=== PATIENT | male | born 1960 | race Caucasian/White ===

== ENCOUNTER 2016-05-15 06:45 | Outpatient (CLI) | payer BC ==
[~2016-05-15] VITALS: Ht 177.8 cm; Wt 111.9 kg
--- NOTE | ~2016-05-15 | EKG ---
[place] [address] [facility] [place] [address] ELECTROCARDIOGRAM REPORT Name: JOSHUA MAYNARD Room #: [facility] [id number] Admission: 05/15/16 Attend Phys: Chuck Gimenez MD Discharge: 05/16/16 Date of : 64 Report #: [id number] THIS REPORT FOR: //name// 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 MARTIN : 1960 Requested By: Hira Orozco Order Number: [id number] MD: Masoud Edwards Measurements Intervals Sacul Rate: 90 P: 254 KY: 218 QRS: 47 QRSD: 174 T: 232 QT: 485 QTc: 594 Interpretive Statements Sinus rhythm Prolonged KY interval Left atrial enlargement Left bundle branch block No previous ECG available for comparison Electronically Signed On 05-17-2016 14:11:35 DEVELOPMENT EXPERT by Masoud Edwards [email or web address] <ELECTRONICALLY SIGNED> By: Masoud Edwards MD, [facility] 05/17/16 1411 54 54 Masoud Edwards MD, [facility] /EPI
--- NOTE | ~2016-05-15 | P ---
[facility] [place] [address] [place] [address] PROCEDURE REPORT Name: JOSHUA MAYNARD Room #: REG [facility] Eliel#: [id number] Admission: 05/15/16 Attend Phys: Chuck Gimenez MD Discharge: Date of : 64 Report #: [id number] THIS REPORT FOR: //name// CC: Dany Barker DATE OF SERVICE: 05/15/2016 PREOPERATIVE DIAGNOSIS: Typical atrial flutter. POSTOPERATIVE DIAGNOSIS: Typical atrial flutter. HISTORY: The patient is a 56-year-old male status post aortic valve replacement with mechanical aortic valve who has had recurrent atrial flutter despite cardioversion. He is here for an aflutter ablation. ANESTHESIA: The patient underwent MAC anesthesia with no anesthesia related complications. PROCEDURE: The patient underwent informed consent. We discussed the details of the procedure including the risks, which include but not limited to bleeding, vascular damage, cardiac perforation, damage to the winneb[place] conduction system requiring permanent pacemaker as well as stroke or MS. He understood these risks and is willing to proceed. As such, he is brought to the EP laboratory in a fasting and sedated state and prepped and draped in a sterile fashion. I injected 7 mL of lidocaine to the right groin region and obtained access to the right femoral vein x 3 and sheaths were positioned using the modified Seldinger technique. In the right femoral vein, I placed a 6-Malagasy and two 7-Malagasy short sheaths. Next, under fluoroscopic guidance, I placed a decapolar catheter into the coronary sinus. Of note, this was a very large coronary sinus and the decapolar catheter kept slipping out throughout the case, but eventually remained in position without incident. I then placed the Halo catheter into the right atrium as well around the tricuspid annulus. At baseline, the patient was in atrial flutter with a ventricular cycle length of 765 milliseconds, QRS duration of 160 milliseconds with a left bundle branch block configuration which occurred at the time of his aortic valve replacement. His QT interval was 450 and his atrial cycle length was 245 milliseconds with the proximal to distal activation sequence along the coronary sinus and a counterclockwise activation along the Halo catheter. I performed pacing from Halo 1-2 and I was able to entrain the atrial flutter and the PPI minus tachycardia cycle length was 10 milliseconds consistent with typical atrial flutter. Next, I exchanged one of the short sheaths for a ramp sheath and an 8 mm Biosense Manuel ablation catheter. I created a detailed 3D geometry of the right atrium with specific emphasis of the tricuspid annulus. Next, I performed ablation at 70 barrera and 60 degrees and performed a continuous drag lesion along the tricuspid [facility] [address] [place] [address] PROCEDURE REPORT Name: JOSHUA MAYNARD Room #: REG BRIGID Julian#: [id number] Admission: 05/15/16 Attend Phys: Chuck Gimenez MD Discharge: Date of : 64 Report #: [id number] isthmus at 6 o'clock along the annulus. As I was ablating, there was prolongation of the atrial flutter cycle length and about two thirds and after I reached about the middle of the isthmus, there was conversion to sinus rhythm. I continued to ablate in until I fell down to the inferior vena cava. Immediately post-ablation, I performed pacing from CS 9-10 and the transisthmus conduction time was 160 milliseconds with an activation sequence consistent with medial to lateral block. I then performed differential pacing from Halos 1-2 and 3-4 which was also consistent with a lateral to medial block with a transisthmus conduction time of 170 milliseconds. During the awaiting period, I went along my prior ablation line and performed additional ablation in an area where there was a gap remaining and there was some small sharp electrogram still noted. However, throughout the rest of my line, there was basically no significant signals noted. Next, I performed a basic EP study and AV block was noted at 490 milliseconds. An AV ilaan ERP was noted at 360 milliseconds at a [address] cycle length. Post-ablation, the patient was in sinus rhythm with a sinus cycle length of 840 milliseconds, SD interval 250 milliseconds, QRS duration of 160 milliseconds with a left bundle branch block configuration, and QT interval 455 milliseconds. We waited for a period of 30 minutes and there was no recurrence of conduction along the isthmus. As such, all catheters and sheaths were pulled. Hemostasis was performed for longer than usual given the INR of 3.0 and the patient awoke neurologically intact and hemodynamically intact with 10 mL of blood loss. CONCLUSIONS: 1. Successful ablation of typical atrial flutter with evidence of bidirectional block post-ablation. 2. Normal SA ilana function. 3. Normal AV ilana function. 4. Persistence of a left bundle branch block. 5. No other inducible arrhythmias noted. <ELECTRONICALLY SIGNED> By: Chuck Gimenez MD 05/15/16 1416 1140 1402 Chuck Gimenez MD /nt
--- NOTE | ~2016-05-15 | D ---
[facility] [address] [place] [address] DISCHARGE SUMMARY Name: JOSHUA MAYNARD Room #: DEP Steven Julian#: [id number] Admission: 05/15/16 Attend Phys: Chuck Gimenez MD Discharge: 05/16/16 Date of : 64 Report #: [id number] THIS REPORT FOR: //name// CC: Dany Barker MD DICTATED BY: Ashlie DWYER HISTORY OF PRESENT ILLNESS: Very pleasant 56-year-old gentleman who was admitted for an elective atrial flutter ablation. Please see admission history and physical for full details. He proceeded to the electrophysiology lab with Dr. Chuck Gimenez and underwent a successful ablation of typical atrial flutter with evidence of bidirectional block post-ablation. He was monitored overnight on the telemetry floor. He is now maintained sinus rhythm with continued left bundle branch block. He is up ambulating in the halls. He is without any specific complaints, tolerating p.o. intake well. He has been afebrile with blood pressures 110s-130s systolic range. LABORATORY DATA: On admission, sodium 142, potassium 3.8, BUN 18, creatinine 1.0. Hemoglobin 15.1 with a white count of 7.5. INR on admission 3.0. DISCHARGE MEDICATIONS: The patient will resume his home medications of amiodarone 200 mg daily, aspirin 81 mg daily, Nexium 40 mg daily, Lasix 20 mg daily, lisinopril 2.5 mg daily, Toprol 25 mg twice daily, potassium 20 mEq daily, Crestor 20 mg daily, warfarin 5 mg daily. DISCHARGE DIAGNOSES: 1. Typical atrial flutter status post ablation. 2. Left bundle branch block. 3. Prosthetic St. Norm 25 mm aortic valve replacement, February 2016. 4. Dyslipidemia. 5. Hypertension. DISCHARGE INSTRUCTIONS: As mentioned, he will resume his home medications as tolerated, notify the office with any questions or concerns. Atrial dysrhythmias have been reviewed with him. He will have an INR in the office in 1 week. He will follow up with Dr. Chuck Gimenez in 1 month. He will follow up with his other providers as directed. He will resume his usual diet. Activity as tolerated and notify the office with questions or concerns. Dr. Hira Orozco was able to meet with the patient today prior to his discharge and has agreed with the above. [address] [address] DISCHARGE SUMMARY Name: JOSHUA MAYNARD Room #: DEP BRIGID Julian#: [id number] Admission: 05/15/16 Attend Phys: Chuck Gimenez MD Discharge: 05/16/16 Date of : 64 Report #: [id number] Thank you for allowing us to participate in the care of this pleasant gentleman. <ELECTRONICALLY SIGNED> By: Hira Orozco MD, FAC 05/20/16 0936 0744 1852 Hira Orozco MD, [facility] /nt
[~2016-05-15 06:45] MED LIST: ASPIR 8181 MG PO; CRESTOR10 MG PO; LISINOPRIL-HCT1 EAC2 PO; NEXIUM40 MG PO; UNICOMPLEX M TA1 TA1 PO
[2016-05-15 07:31] VITALS: BP 131/81
[2016-05-15] MEDS ORDERED: LISINOPRIL2.5 M1 PO (07:32)
[2016-05-15] MEDS ORDERED: PACERONE 200 M200 M1 PO (07:41)
[2016-05-15] MEDS ORDERED: COUMADIN 5 MG TA5 M1 PO (07:41)
[2016-05-15] MEDS ORDERED: LOPRESSOR25 PO (07:42)
[2016-05-15] MEDS ORDERED: LASIX 20 MG TAB20 MG PO (07:42)
[2016-05-15] MEDS ORDERED: K-DUR 20 MEQ T20 MEQ PO (07:43)
[2016-05-15 07:53] LABS: ABSOLUTE NEUTROPHILS 4.8 thou/uL (1.4-8.2); BASOPHILS 1.1 % (0.0-2.0); EOSINOPHILS 2.4 % (0.0-3.0); HEMATOCRIT 45.9 % (42.0-52.0); HEMOGLOBIN 15.1 gm/dL (14.0-18.0); LYMPHOCYTES 21.7 % (24.0-44.0); MCH 26.5 pg (26.0-34.0); MCHC 32.9 % (28.0-37.0); MCV 80.4 fL (80.0-100.0); MONOCYTES 10.5 % (1.0-8.0); PLATELET COUNT 339 thou/uL (150-400); POLYS 64.3 % (36.0-66.0); WBC 7.5 thou/uL (4.0-11.0)
[2016-05-15 07:55] LABS: MANUAL DIFF NO
[2016-05-15 08:06] LABS: APTT 38.5 Seconds (24.5-32.8); PROTIME 31.5 Seconds (9.3-11.4)
[2016-05-15 08:11] LABS: POTASSIUM 3.8 mmol/L (3.5-5.1)
[2016-05-15 08:15] LABS: ALBUMIN 3.5 g/dL (3.4-5.0); TOTAL BILIRUBIN 0.8 mg/dL (<0.1-1.0); TOTAL PROTEIN 7.9 g/dL (6.4-8.2)
[2016-05-15 13:15] VITALS: BP 114/75
[2016-05-15 15:35] VITALS: BP 121/82
[2016-05-15 20:10] VITALS: BP 121/70
[2016-05-15 21:06] VITALS: BP 113/65
[2016-05-16 00:35] VITALS: BP 135/74
[2016-05-16 04:43] VITALS: BP 109/62
[2016-05-16 08:10] VITALS: BP 136/83
[2016-05-16 11:55] VITALS: BP 136/83
[2016-05-16] MEDS ORDERED: PACERONE 200 M200 M1 PO (12:17)
== END 2016-05-16 12:59 | disposition home or self-care (01) ==
LOC: CATH 06:45 → 2N 16:31 → CATH 05-16 12:59
PROVIDERS: Internal Medicine Cardiovascular Disease
DX: I48.3 Typical atrial flutter (principal); Z95.2 Presence of prosthetic heart valve; E78.5 Hyperlipidemia, unspecified; I11.9 Hypertensive heart disease without heart failure; I73.9 Peripheral vascular disease, unspecified
CPT/HCPCS: 10081; 62110; 62900; 70005

== ENCOUNTER → 2018-05-30 | Outpatient (CLI) | payer BC ==
[~2018-05-30] MED LIST changes: +COUMADIN 5 MG TA5 M1 PO; +K-DUR 20 MEQ T20 MEQ PO; +LASIX 20 MG TAB20 MG PO; +LISINOPRIL2.5 M1 PO; +LOPRESSOR25 PO; +PACERONE 200 M200 M1 PO
--- NOTE | ~2018-05-30 | 24HR ---
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
== END ==
LOC: CV 15:06
DX: I48.91 Unspecified atrial fibrillation (principal); I48.92 Unspecified atrial flutter

== ENCOUNTER → 2018-06-21 | Outpatient (CLI) | payer BC ==
[~2018-06-21] VITALS: Ht 177.8 cm; Wt 133.8 kg
[2018-06-21 11:17] VITALS: BP 120/75
[2018-06-21 11:44] LABS: HEMOGLOBIN 17.2 gm/dL (14.0-18.0); MCH 31.3 pg (26.0-34.0); MCHC 34.4 g/dL (28.0-37.0); RBC 5.5 mil/uL (4.50-6.00); RDW 14.1 % (10.5-14.5); WBC 5.9 thou/uL (4.0-11.0)
[2018-06-21 12:07] LABS: APTT 44.9 Seconds (24.5-32.8); INR 3.6; PROTIME 36.9 Seconds (9.3-11.4)
[2018-06-21 12:09] LABS: TOTAL BILIRUBIN 1.3 mg/dL (<0.1-1.0); TOTAL PROTEIN 7.7 g/dL (6.4-8.2)
== END | disposition home or self-care (01) ==
LOC: CATH 07:14
PROVIDERS: Internal Medicine Cardiovascular Disease
DX: I48.91 Unspecified atrial fibrillation (principal); I35.0 Nonrheumatic aortic (valve) stenosis; I10 Essential (primary) hypertension; E78.5 Hyperlipidemia, unspecified; I73.9 Peripheral vascular disease, unspecified; I48.92 Unspecified atrial flutter; G47.30 Sleep apnea, unspecified; E66.9 Obesity, unspecified; Z98.890 Other specified postprocedural states; Z95.1 Presence of aortocoronary bypass graft; Z86.73 Personal history of transient ischemic attack (TIA), and cerebral infarction without residual deficits
CPT/HCPCS: 62110; 62900

== ENCOUNTER → 2018-07-26 | Outpatient (CLI) | payer BC | LOC: CAT 07:47 | DX: I48.91 Unspecified atrial fibrillation (principal); M47.814 Spondylosis without myelopathy or radiculopathy, thoracic region; Z95.4 Presence of other heart-valve replacement ==

== ENCOUNTER 2018-08-01 06:33 | Observation (INO) | payer BC ==
[~2018-08-01] VITALS: Ht 177.8 cm; Wt 140.6 kg
--- NOTE | ~2018-08-01 | D ---
[facility] [place] [address] [place] [address] DISCHARGE SUMMARY Name: JOSHUA MAYNARD Room #: 211-P [facility] M.R.#: [id number] Admission: 08/01/18 ������������������ Attend Phys: Chuck Gimenez MD Discharge: ������������������ Date of : 64 Report #: [id number] THIS REPORT FOR: //name// CC: Masoud Barker DIAGNOSES: 1. Paroxysmal atrial fibrillation. 2. Atrial flutter. 3. Mechanical aortic valve replacement. PROCEDURES PERFORMED: AFib ablation. The patient is a 58-year-old male with a history of prior mechanical AVR, status post atrial flutter ablation a few years ago, now with atrial fibrillation. He is here for AFib ablation. 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 I was able to eventually obtain transseptal access at high location on the septum. This did limit my ability to maneuvering the atrium. The patient underwent a combination of cryoablation of left common ostium and the right-sided veins. There were no procedure-related complications. HOSPITAL COURSE: The patient was monitored in the hospital overnight and did well. On the day of discharge, he denied any chest pain, shortness of breath, fevers or chills. On physical exam, his heart was regular rate and rhythm. Lungs were clear to auscultation bilaterally. Abdomen was soft, nontender and groin showed no bruising or hematoma. Telemetry, he remained in sinus rhythm overnight. His INR on the day of discharge was 2.5 and was 2.0 yesterday. He had undergone a CRYSTAL yesterday prior to the ablation that showed no clot. As such, he was deemed stable for discharge home and he will continue with his same home medications including Coumadin and amiodarone therapy. He will see my nurse practitioner in 2 weeks and see me back in 3 months. ��������������������������������������������� ���������������������������������������� By: ��������������������������������������������� 0818 0926 Chuck Gimenez MD /nt
--- NOTE | ~2018-08-01 | P ---
[facility] [place] [address] [place] [address] PROCEDURE REPORT Name: JOSHUA MAYNARD Room #: 211-P [facility] Suraj Julian#: [id number] Admission: 08/01/18 ������������������ Attend Phys: Chuck Gimenez MD Discharge: 08/02/18 ������������������ Date of : 64 Report #: [id number] THIS REPORT FOR: //name// CC: Masoud Barker PREOPERATIVE DIAGNOSES: 1. Atrial fibrillation. 2. Nonischemic cardiomyopathy. 3. Aortic stenosis, status post mechanical aortic valve. 4. Atrial flutter. PROCEDURES PERFORMED: 1. AFib ablation, CPT code 74877. 2. 3D mapping, CPT code 59609. 3. Intracardiac echo, CPT code 13250. HISTORY OF PRESENT ILLNESS: The patient is a 58-year-old male with a history of aortic stenosis, status post prior mechanical aortic valve placement, whom I performed an Aflutter ablation on a few years ago. Recently, he presented with new-onset atrial fibrillation and decreased ejection fraction. He has failed cardioversion and is here for AFib ablation. ANESTHESIA: The patient underwent general anesthesia, with no anesthesia-related complications. DESCRIPTION OF PROCEDURE: The patient was brought to the EP laboratory in a fasting and sedated state. He underwent a CRYSTAL prior to the ablation this morning. There was no left atrial appendage clot. Next, the patient was prepped and draped in a sterile fashion. I obtained access to the bilateral femoral veins, placing two 8-Hungarian short sheaths in the right femoral vein and a 7 and 9-Hungarian short sheath in the left femoral vein. Under fluoroscopy, I placed a decapolar catheter easily in the coronary sinus and an ice catheter into the right atrium. Next, using intracardiac ultrasound, I created a 3D geometry of the left atrium using [employer] and this was merged with the cardiac CT scan. Next, a transseptal was attempted. Of note, the interatrial septum did not appear to be thickened, but there was obvious intra-atrial fibrosis, likely due to his prior valve surgery. Next, I attempted to obtain access to the interatrial septum and using an SL1 sheath and a [place] needle. At the first location, I crossed with the [place] needle. I attempted to advance my dilator and it would not budge whatsoever. [address] [address] PROCEDURE REPORT Name: JOSHUA MAYNARD CIERRA Room #: 211-P GI[facility] Julian#: [id number] Admission: 08/01/18 ������������������ Attend Phys: Chuck Gimenez MD Discharge: 08/02/18 ������������������ Date of : 64 Report #: [id number] When I would try and pull my [place] needle out in order to potentially advance my wire into the left atrium via the dilator, this was unsuccessful as there was not enough stability with the sheath alone to maintain contact with the hole that I had created using the RF needle. I attempted to advance my needle into the created hole for a period of time and this was unsuccessful. I, therefore, attempted using a larger curve [place] needle. This did not help and actually made things more challenging because his atria were not that enlarged, and therefore, it made it more difficult for me to engage the septum. I then switched back to my original needle and SL1 sheath. I probably made at least 2-3 small holes using the [place] needle, one of which was very posterior and I could get a wire into, but this was going to be a very poor location to try and isolate the veins from, as I was nearly crossing next to the right inferior pulmonary vein. Therefore, I attempted to obtain transseptal access just using the SL1 sheath dilator. Via the dilator, I placed the [place] needle and then created another small hole in the interatrial septum. This hole was in the upper third of the septum, which was not ideal, but it was the first place that I had been able to cross and the transseptal took 2 hours. Therefore, using just this dilator, I was finally able to advance into the left atrium somewhat and then put a wire into the left superior pulmonary vein. I pulled the dilator out. I then placed the SL1 sheath into the left atrium and then I was able to place a Lasso in the left atrium and create a voltage map of the left atrium. I then exchanged for the cryo sheath and the cryoablation balloon. Of note, the patient had a very large left common ostium. This was 50 mm in diameter. I started by performing multiple subsegmental freezes of the common ostium. I then turned my attention to the right-sided veins and these were successfully isolated. I then turned my attention back to the left common ostium. Given my difficulties with the transseptal, I was not going to try and perform a second transseptal. I initially tried creating a voltage map of the common ostium and then using the ablation catheter via the cryo sheath to attempt to isolate the left common ostium as there were very large potentials along the ridge. This was not successful. Therefore, I finally placed the Lasso into the left common ostium via the cryo sheath and then via the created hole, I was able to advance my ablation catheter into the left atrium and again, I continued to try to isolate this vessel, but it was unsuccessful. I was very limited in my ability to maneuver my ablation catheters. I did not have a sheath in the left atrium and I could not engage the inferior anterior aspect of the vessel very well. Therefore, at this point, I decided to conclude the procedure. Post-ablation, the patient remained in sinus rhythm with sinus cycle length of 1013 milliseconds, OR interval 280 milliseconds, QRS duration 170 milliseconds and QT interval 550 milliseconds. As such, the patient received systemic protamine and once ACT was within acceptable range, all catheters and sheaths were pulled. Intracardiac ultrasound was utilized to verify that there was no pericardial effusion. [facility] [address] [place] [address] PROCEDURE REPORT Name: CAESARJOSHUA CIERRA Room #: 211-P [facility] Suraj Julian#: [id number] Admission: 08/01/18 ������������������ Attend Phys: Chuck Gimenez MD Discharge: 08/02/18 ������������������ Date of : 64 Report #: [id number] CONCLUSIONS: 1. Atrial fibrillation ablation with partial isolation of the left common ostium and successful ablation of the right-sided vessels. 2. Very challenging transseptal axis, taking 2 hours due to interatrial fibrosis. ��������������������������������������������� ���������������������������������������� By: ��������������������������������������������� 1316 0550 Chuck Gimenez MD /nt
[2018-08-01 07:01] LABS: HEMATOCRIT 48.2 % (42.0-52.0); HEMOGLOBIN 16.4 gm/dL (14.0-18.0); MCH 31.1 pg (26.0-34.0); MCV 91.4 fL (80.0-100.0); PLATELET COUNT 207 thou/uL (150-400); RBC 5.27 mil/uL (4.50-6.00); RDW 15.2 % (10.5-14.5); WBC 5.8 thou/uL (4.0-11.0)
[2018-08-01 07:04] VITALS: BP 141/91
[2018-08-01 07:09] LABS: CALCIUM 9.3 mg/dL (8.5-10.1); CREATININE 1.1 mg/dL (0.7-1.3); POTASSIUM 4.1 mmol/L (3.5-5.1)
[2018-08-01 07:12] LABS: PROTIME 21.2 Seconds (9.3-11.4)
[2018-08-01 07:14] LABS: APTT 40.5 Seconds (24.5-32.8)
[2018-08-01 07:15] LABS: ALBUMIN 3.8 g/dL (3.4-5.0); TOTAL BILIRUBIN 0.9 mg/dL (<0.1-1.0); TOTAL PROTEIN 7.5 g/dL (6.4-8.2)
[2018-08-01] MEDS ORDERED: BENICAR20 MG PO (07:16)
[2018-08-01] MEDS ORDERED: ATENOLOL 50MG T50 M1 PO (07:16)
[2018-08-01 07:44] LABS: ABSOLUTE NEUTROPHILS 3.1 thou/uL (1.4-8.2)
[2018-08-01 07:45] LABS: ANISOCYTOSIS SLIGHT
--- NOTE | 2018-08-01 10:29 | TEE ---
[facility] [address] [place] [address] TRANSESOPHAGEAL ECHOCARDIOGRAM Name: JOSHUA MAYNARD [facility] [id number] ������������� Admission: 08/01/18 ������������� Attend Phys: Chuck Gimenez Discharge: ��� ������������� ��� Date of : 64 Date of Service: 08/01/18 1029 �� Report #: [id number] �������� ��������������������������������������������[id number] THIS REPORT FOR: //name// APPROVED REPORT Study performed: 08/01/2018 07:47:51 EXAM: Comprehensive 2D, Doppler, and color-flow Echocardiogram Patient Location: Out-Patient Status: routine BSA: 2.48 HR: 61 bpm BP: 124/68 mmHg Rhythm: NSR/pvcs Other Information Study Quality: Adequate Indications Atrial Fibrillation Hx: CHF, AVR, CM Echo Enhancing Agent Indication: Rule out Shunt Agent(s) / Amount(s) Used: Agitated Saline 6 cc Procedure After obtaining informed consent, patient underwent transesophageal echo in the [employer]. Type of Sedation : Conscious Sedation Sedation was achieved intravenously with: Versed (5) Fentanyl (100) Transesophageal probe was inserted and advanced into esophagus without difficulty by Masoud Edwards MD. The CRYSTAL was performed without complications. Throughout the procedure, the blood pressure, pulse oximetry, cardiac rhythm, and rate were monitored. The patient tolerated the procedure without adverse effects. Recovery from conscious sedation was uneventful and vital signs were stable. Left Ventricle The left ventricle is normal size. There is global hypokinesis of the left ventricle. Mild concentric left ventricular hypertrophy. Left [facility] [address] [place] [address] TRANSESOPHAGEAL ECHOCARDIOGRAM Name: JOSHUA MAYNARD Room #: REG Luiz.#: [id number] ������������� Admission: 08/01/18 ������������� Attend Phys: Chuck [facility]magruder hospitalnnk[facility] Discharge: ��� ������������� ��� Date of : 64 Date of Service: 08/01/18 1029 �� Report #: [id number] �������� ��������������������������������������������[id number] ventricular systolic function is moderately decreased. LVEF is 40-45%. Right Ventricle The right ventricle is normal size. The right ventricular systolic function is normal. Atria Left atrium is dilated. No thrombus is visualized in the left atrium or appendage. No shunting by contrast bubble injection. Right atrium is dilated. Aortic Valve Prosthetic, mechanical aortic valve is present. #25 St. Norm. No aortic regurgitation is present. There is no aortic valvular stenosis. Mitral Valve The mitral valve is normal in structure. Mild mitral regurgitation. Tricuspid Valve The tricuspid valve is normal in structure. Trace tricuspid regurgitation. Pulmonic Valve The pulmonary valve is normal in structure. There is no pulmonic valvular regurgitation. Great Vessels The ascending aorta is normal in size. IVC is normal in size and collapses >50% with inspiration. Pericardium There is no pericardial effusion. <Conclusion> Left ventricular systolic function is moderately decreased. LVEF is 40-45%. Left atrium is dilated. No thrombus is visualized in the left atrium or appendage. No shunting by contrast bubble injection. Prosthetic, mechanical aortic valve is present. #25 St. Norm. No aortic regurgitation or stenosis. The mitral valve is normal in structure. Mild mitral [facility] [address] [address] TRANSESOPHAGEAL ECHOCARDIOGRAM Name: CAESARJOSHUA CIERRA Room #: REG [facility] [id number] ������������� Admission: 08/01/18 ������������� Attend Phys: Chuck Gasparmagruder hospitaljoce Discharge: ��� ������������� ��� Date of : 64 Date of Service: 08/01/18 1029 �� Report #: [id number] �������� ��������������������������������������������[id number] regurgitation. There is no pericardial effusion. ��������������������������������������������� <ELECTRONICALLY SIGNED> ���������������������������������������� By: Masoud Edwards MD, [facility] ��������������������������������������������� 08/01/18 1029 28 28 Masoud Edwards MD, FAC /INF
[2018-08-01 16:00] VITALS: BP 115/53; BP 141/91
--- NOTE | 2018-08-01 16:00 | NUR ---
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 VSS REMAINS SB TO NSR ON MONITER. R/L GROIN VENOUS SITES INTACT, NO HEMATOMA OR BRUIT, PT INSTRUCTED BR X 6 HOURS. LUNGS CLEAR , O2 SWAT 3L IS 94%. SEE DATA FLOW SHEET FOR FREQUENT VS AND GROION CHECKS. WILL CONTINUE TO MONITER AND CARTE FOR PT PER PLAN OF CARE
[2018-08-01 19:56] VITALS: BP 126/66
[2018-08-01 21:00] VITALS: BP 115/53
[2018-08-01 23:27] VITALS: BP 123/63
[2018-08-02 03:47] VITALS: BP 97/52
[2018-08-02 03:56] LABS: INR 2.5; PROTIME 25.5 Seconds (9.3-11.4)
[2018-08-02 03:59] LABS: CALCIUM 8.6 mg/dL (8.5-10.1); POTASSIUM 4.3 mmol/L (3.5-5.1)
[2018-08-02 04:14] LABS: HEMATOCRIT 43.8 % (42.0-52.0); HEMOGLOBIN 14.7 gm/dL (14.0-18.0); MCH 30.9 pg (26.0-34.0); MCHC 33.4 g/dL (28.0-37.0); MCV 92.5 fL (80.0-100.0); RBC 4.74 mil/uL (4.50-6.00); RDW 15.6 % (10.5-14.5); WBC 10.5 thou/uL (4.0-11.0)
--- NOTE | 2018-08-02 04:15 | NUR ---
PT OFF BEDREST AT 2100, VARGAS REMOVED, GROIN SITES UNCHANGED, PRN PAIN MED FOR RIGHT GROIN PAIN, VSS, O2 SAT CHECKED ON RA @ 89% PLACED BACK ON 2L/NC WITH SAT AT 94%, PT STATED HE HAD BEEN SOA LAST SEVERAL WEEKS, PT UP IN CHAIR AND AMBULATING IN ROOM, WILL CON'T TO MONITOR PER PPOC.
--- NOTE | 2018-08-02 07:44 | EKG ---
[address] [address] ELECTROCARDIOGRAM REPORT Name: JOSHUA MAYNARD Room #: 211-P [facility] M.R.#: [id number] ������������������ Admission: 08/01/18 ������������������ Attend Phys: Chuck Gimenez MD Discharge: ������������������ Date of : 64 Report #: [id number] ����������������������������������������������������������������� [id number] THIS REPORT FOR: //name// 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 : 1960 Requested By: Layne Mccray Order Number: [id number] MD: Masoud Edwards Measurements Intervals [place] Rate: 55 P: 32 WY: 293 QRS: 83 QRSD: 182 T: 14 QT: 554 QTc: 530 Interpretive Statements Sinus rhythm Prolonged WY interval Probable left atrial enlargement LBBB Compared to ECG 05/15/2016 20:55:36 No significant changes Electronically Signed On 08-02-2018 7:44:17 CDT by Masoud Edwards [email or web address] ��������������������������������������������� <ELECTRONICALLY SIGNED> ���������������������������������������� By: Masoud Edwards MD, [facility] ��������������������������������������������� 08/02/18 0744 [id number] Masoud Edwards MD, [facility] /EPI
[2018-08-02 08:00] VITALS: BP 127/60
[2018-08-02 10:14] VITALS: BP 97/52
--- NOTE | 2018-08-02 10:24 | NUR ---
ASSESSMENT DOCUMENTED. VSS. SB ON THE MONITOR. NO PAIN/CHEST PAIN REPORTED BY THE PT. BILAT GROIN SITES INTACT WITH NO HEMATOMA. R GROIN SITE WITH MINIMAL DRAINAGE. WILL CONTINUE TO MONITOR. PT RESTING IN BED WITH CALL LIGHT IN REACH. WILL CONTINUE TO MONITOR.
== END 2018-08-02 10:44 | disposition home or self-care (01) ==
LOC: CATH 06:33 → 2N 16:16
PROVIDERS: Internal Medicine; Nurse Practitioner; ADMIT Internal Medicine Cardiovascular Disease
DX: I48.0 Paroxysmal atrial fibrillation (principal); I48.92 Unspecified atrial flutter; I35.0 Nonrheumatic aortic (valve) stenosis; I42.8 Other cardiomyopathies; Z95.4 Presence of other heart-valve replacement
CPT/HCPCS: 62110; 62900; 65020; 65040; 70005

== ENCOUNTER → 2018-08-11 | Outpatient (CLI) | payer BC ==
[~2018-08-11] MED LIST changes: +ATENOLOL 50MG T50 M1 PO; +BENICAR20 MG PO
--- NOTE | 2018-08-15 20:50 | SLE ---
[facility] [place] [place] [address] POLYSOMNOGRAPHY STUDY Name: JOSHUA MAYNARD Room #: REG [facility].#: [id number] Admission: 08/11/18 ������������������ Attend Phys: Jonathan Vicente MD Discharge: ������������������ Date of : 64 Report #: [id number] THIS REPORT FOR: //name// CC: Jonathan Brown MD DATE OF SERVICE: 08/11/2018 SLEEP STUDY ATTENDING PHYSICIAN: Sunil Brown MD. The patient is a 58-year-old who weighs 295 pounds with a BMI of 42. The patient's Barney score was 16. The patient underwent sleep study at [facility]. During the night of the study, the patient spent 428 minutes in bed and slept for 276 minutes with a low sleep efficiency of 64%. Sleep latency was 30 minutes with a REM latency of 115 minutes. Overall, sleep architecture showed increased stage 1 sleep, normal stage 2 sleep, absent N3 sleep and normal REM sleep. During the night of the study, the patient had 117 obstructive apneas, no mixed or central apneas and 16 hypopneas. The patient's apnea hypopnea index was 29 per hour with a REM index of 30 per hour and a supine index of 47 per hour. EKG monitoring revealed average heart rate of 56 beats per minute. There were frequent PVCs observed. No sustained arrhythmia seen. PLMS were seen at an index of 5 per hour and 0.4 per hour caused EEG arousals. Nocturnal oximetry study revealed an average oxygen saturation of 95% with lowest of 83%. 8 minutes were spent in oxygen saturation of less than 89%. Due to limited sleep time, CPAP could not be initiated. IMPRESSION: 1. Moderate to severe sleep apnea-hypopnea syndrome. Total apnea-hypopnea index of 29 per hour with a supine apnea-hypopnea index of 47 per hour and a REM apnea-hypopnea index of 30 per hour. 2. Nocturnal hypoxia secondary to obstructive sleep apnea. 3. Abnormal EKG with frequent premature ventricular contractions. 4. No clinically significant periodic limb movements. [facility] [address] [place] [address] POLYSOMNOGRAPHY STUDY Name: JOSHUA MAYNARD Room #: REG [facility]#: [id number] Admission: 08/11/18 ������������������ Attend Phys: Jonathan Vicente MD Discharge: ������������������ Date of : 64 Report #: [id number] RECOMMENDATIONS: 1. The patient would benefit from return to the sleep lab for CPAP titration study. 2. Once optimum CPAP pressure is achieved, then follow up in 4-6 weeks to assess compliance with CPAP and to document clinical improvement. 3. Weight loss is strongly advised. 4. Avoid COLD ROLLING COORDINATOR depressants. 5. Cautioned regarding driving until symptoms of sleep apnea resolve with the use of CPAP. ��������������������������������������������� <ELECTRONICALLY SIGNED> ���������������������������������������� By: Jonathan Vicente MD ��������������������������������������������� 08/15/182049 [id number] MD ana cristina Benavides
== END ==
LOC: SLEEPLAB 13:06
DX: G47.33 Obstructive sleep apnea (adult) (pediatric) (principal); G47.34 Idiopathic sleep related nonobstructive alveolar hypoventilation

== ENCOUNTER → 2018-09-05 | Outpatient (CLI) | payer BC ==
[~2018-09-05] VITALS: Ht 177.8 cm; Wt 140.6 kg
[~2018-09-05] MED LIST changes: +AVAPRO300 MG PO; +COREG6.25 MG PO
--- NOTE | ~2018-09-05 | P ---
[facility] [place] [address] [place] [address] PROCEDURE REPORT Name: JOSHUA MAYNARD Room #: REG [facility]#: [id number] Admission: 09/05/18 ������������������ Attend Phys: Chuck Gimenez MD Discharge: ������������������ Date of : 64 Report #: [id number] THIS REPORT FOR: //name// CC: Chuck Barker PREOPERATIVE DIAGNOSIS: Atrial flutter. POSTOPERATIVE DIAGNOSIS: Atrial flutter. The patient is a 58-year-old with history of AVR and A-Fib, status post recent ablation who has had recurrent A-Fib/atrial flutter here for cardioversion. DESCRIPTION OF PROCEDURE: The patient underwent informed consent. He was then prepped in a standard fashion. He was then sedated by the Anesthesiology Service. Once sedated, underwent a 200 joule synchronized cardioversion with voodoo of sinus rhythm with no complications. CONCLUSIONS: Successful DC cardioversion with voodoo of sinus rhythm. ��������������������������������������������� ���������������������������������������� By: ��������������������������������������������� 1234 0345 Chuck Gimenez MD /nt
[2018-09-05 11:54] LABS: HEMATOCRIT 48.6 % (42.0-52.0); HEMOGLOBIN 16.6 gm/dL (14.0-18.0); MCH 31.3 pg (26.0-34.0); MCHC 34.1 g/dL (28.0-37.0); MCV 91.6 fL (80.0-100.0); RBC 5.3 mil/uL (4.50-6.00); WBC 5.4 thou/uL (4.0-11.0)
[2018-09-05 12:02] VITALS: BP 138/108
[2018-09-05 12:07] LABS: APTT 42.7 Seconds (24.5-32.8); INR 2.9; PROTIME 29.6 Seconds (9.3-11.4)
[2018-09-05 12:08] LABS: CALCIUM 9.5 mg/dL (8.5-10.1); POTASSIUM 3.8 mmol/L (3.5-5.1)
[2018-09-05 12:14] LABS: TOTAL BILIRUBIN 1.1 mg/dL (<0.1-1.0); TOTAL PROTEIN 7.7 g/dL (6.4-8.2)
--- NOTE | 2018-09-05 14:03 | NUR ---
PT RECOVERED POST CARDIOVERSION WITH NO C/O. PLEASED WITH RESULTS TO NSR. AT BEDSIDE. DISCHARGE INSTRUCTIONS GIVEN TO BOTH PT AND . BOTH VOICE UNDERSTANDING. SIPS 7UP WITH NO DIFF. SL DC'D . PRESSURE HELD DUE TO INR. PT WITH PLEASANT AFFECT AND HOME WITH .
--- NOTE | 2018-09-05 14:13 | EKG ---
[address] [address] ELECTROCARDIOGRAM REPORT Name: JOSHUA MAYNARD Room #: REG [facility]#: [id number] ������������������ Admission: 09/05/18 ������������������ Attend Phys: Chuck Gimenez MD Discharge: ������������������ Date of : 64 Report #: [id number] ����������������������������������������������������������������� [id number] THIS REPORT FOR: //name// [facility] Test Date: 2018-09-05 Test Time: 11:58:39 Pat Name: JOSHUA MAYNARD Department: Room: Gender: Science Professor: Jose GIPSON : 1960 Requested By: Chuck Gimenez Order Number: [id number] MD: Chuck Gimenez Measurements Intervals [place] Rate: 77 P: 96 [place]: 188 QRS: 84 QRSD: 177 T: 53 QT: 493 QTc: 559 Interpretive Statements Atrial fibrillation/atrial flutter Compared to ECG 08/02/2018 06:54:28 Electronically Signed On 09-05-2018 14:13:17 CDT by Chuck Gimenez [email or web address] ��������������������������������������������� <ELECTRONICALLY SIGNED> ���������������������������������������� By: Chuck Gimenez MD ��������������������������������������������� 09/05/18 1413 1158 1158 Chuck Gimenez MD /MIGDALIA
== END | disposition home or self-care (01) ==
LOC: CATH 06:29
PROVIDERS: Internal Medicine Cardiovascular Disease
DX: I48.92 Unspecified atrial flutter (principal); I10 Essential (primary) hypertension; E78.5 Hyperlipidemia, unspecified; I73.89 Other specified peripheral vascular diseases; I48.91 Unspecified atrial fibrillation; G47.33 Obstructive sleep apnea (adult) (pediatric); K21.9 Gastro-esophageal reflux disease without esophagitis; I42.9 Cardiomyopathy, unspecified; E66.09 Other obesity due to excess calories; Z79.01 Long term (current) use of anticoagulants; Z98.890 Other specified postprocedural states; Z98.0 Intestinal bypass and anastomosis status; Z79.899 Other long term (current) drug therapy; Z95.2 Presence of prosthetic heart valve; Z79.82 Long term (current) use of aspirin
CPT/HCPCS: 62110; 62900

== ENCOUNTER → 2019-12-19 | Outpatient (CLI) | payer BC | LOC: SJCVCIMAG 08:05 | PROVIDERS: ATTEND Internal Medicine Cardiovascular Disease | DX: I25.10 Atherosclerotic heart disease of native coronary artery without angina pectoris (principal); I48.91 Unspecified atrial fibrillation; I45.2 Bifascicular block ==

== ENCOUNTER → 2020-02-12 | Outpatient (CLI) | payer BC | LOC: LAB 08:49 | PROVIDERS: ATTEND Neuromusculoskeletal Medicine & OMM | DX: Z01.812 Encounter for preprocedural laboratory examination (principal); Z20.828 Contact with and (suspected) exposure to other viral communicable diseases ==

== ENCOUNTER → 2020-02-16 | Outpatient (CLI) | payer BC ==
[~2020-02-16] MED LIST changes: +AMOXICILLIN 50500 MG PO; +CARVEDILOL6.25 M1 PO; +EFFER-K 10 MEQ10 ME1 PO; +IRBESARTAN300 MG PO; +JANTOVEN5 MG PO; +PACERONE100 MG PO; +ROSUVASTATIN CA40 MG PO; +TORSEMIDE20 MG PO
--- NOTE | 2020-02-29 23:40 | PFR/MVV ---
[facility] [place] [address] [place] [address] PULMONARY FUNCTION MVV/REPORT Name: CAESARJOSHUA CIERRA Room #: REG [facility] Luiz.#: [id number] Admission: 02/16/20 Attend Phys: Dany Torres MD Discharge: Date of : 64 Report #: [id number] THIS REPORT FOR: //name// >> SPIROMETRY: (BTPS) Height: 68 in cm Weight: 304 lbs kg Exam Date: 02/16/20 PRE-RX POST-RX PRED BEST %PRED BEST %PRED %CHG FVC LITERS . 4.40 . 4.39 . 100 . 3.58 . 81 . -19 FEV1 LITERS . 3.17 . 3.04 . 96 . 2.37 . 75 . -22 FEV1/FVC % . 72 . 69 . 96 . 66 . 92 . -5 EGE47-94% L/Sec . 3.14 . 2.00 . 64 . 1.78 . 57 . -11 PEF L/SEC . 8.24 . 5.93 . 72 . 4.38 . 53 . -26 FEF50/FIF50 UNITLESS . <1.00 . 0.86 . . .082 . . -5 MVV L/Min . 137 . 70 . 51 f 1/Min . . 115 . >> LUNG VOLUMES: (BTPS) PRE-RX POST-RX PRED AVG %PRED AVG %PRED %CHG VC Liters . 4.40 . 5.06 . 115 . . . TLC Liters . 6.23 . 6.42 . 103 . . . RV Liters . 2.18 . 1.36 . 62 . . . RV/TLC % . 36 . 21 . 59 . . . [address]C [address] Liters . 2.52 . 1.89 . 75 . . . FRC N2 Liters . 2.52 . . . . . ERV Liters . 1.49 . 0.53 . 35 . . . IC Liters . 2.98 . 3.64 . 122 . . . >> DIFFUSION: DLCO ml/Min/mmHg . 31.1 . 28.5 . 92 . . . DL Angela ml/Min/mmHg . 31.1 . 28.5 . 92 . . . DLCO/VA ml/Min/mmHg . 3.83 . 4.79 . 125 . . . VA Liters . 6.74 . 5.95 . 88 . . . COMMENTS: COMMENTS: >> RESISTANCE: [facility] [address] [place] [address] PULMONARY FUNCTION MVV/REPORT Name: JOSHUA MAYNARD Room #: REG [facility]#: [id number] Admission: 02/16/20 Attend Phys: Dany Torres MD Discharge: Date of : 64 Report #: [id number] PRE-RX PRED AVG %PRED Raw Total cmH20/L/Sec . . 7.26 . Raw Insp cmH20/L/Sec . . 3.19 . Raw Exp cmH20/L/Sec . . 3.77 . Raw cmH20/L/Sec . 2.00 . 4.28 . 214 Gaw L/Sec/cmH20 . 0.604 . 0.233 . 39 sRaw cmH20 Sec . 5.03 . 15.22 . 303 sGaw l/cmH20 Sec . 0.199 . 0.066 . 33 Vtq Liters . . 3.55 . # = OUTSIDE 95% CONFIDENCE INTERVAL CALIBRATION: PRED: 3.00 ACTUAL: EXP 3.01 INSP 3.02 [facility]-OL10-06 [facility]-05 N-1804-4 >> INTERPRETATION/IMPRESSION: CC: Dany Barker ORDERING PHYSICIAN: Dr. Dany Torres. SPIROMETRY: FEV1 is 3.04 liters (96% predicted), FVC is 4.39 liters (100% predicted), FEV1/FVC ratio is 69%. There is no significant bronchodilator response. LUNG VOLUMES: Total lung capacity is 6.42 liters (103%). RV is 1.36 liters (62%). Diffusing capacity is 92%. IMPRESSION: Pulmonary function studies are essentially normal. There is a borderline obstructive airflow defect, however, is not clinically significant per evaluation. Please correlate clinically. Further evaluation may be recommended. <ELECTRONICALLY SIGNED> By: Zechariah Mclean MD 02/29/20 2340 Zechariah Mclean MD /nt
== END ==
LOC: PUL 02-07 13:19
PROVIDERS: ATTEND Internal Medicine Cardiovascular Disease
DX: R94.2 Abnormal results of pulmonary function studies (principal); Z79.899 Other long term (current) drug therapy

== ENCOUNTER → 2020-03-07 | Outpatient (CLI) | payer BC | LOC: LAB 14:01 | PROVIDERS: ATTEND Orthopaedic Surgery Sports Medicine | DX: Z01.812 Encounter for preprocedural laboratory examination (principal); Z20.828 Contact with and (suspected) exposure to other viral communicable diseases ==

== ENCOUNTER 2020-03-13 08:51 | Day surgery (SDC) | payer BC ==
[~2020-03-13] VITALS: Ht 177.8 cm; Wt 138.6 kg
--- NOTE | ~2020-03-13 | O ---
[facility] [place] [address] [place] [address] OPERATIVE REPORT Name: JOSHUA MAYNARD Room #: 150-5 [facility] M.R.#: [id number] Admission: 03/13/20 Attend Phys: Kenan Damon Discharge: Date of : 64 Report #: [id number] THIS REPORT FOR: cc: Demond Barker,Kenan Swann MD ~ CC: Kenan Barker DATE OF SERVICE: 03/13/2020 PREOPERATIVE DIAGNOSES: Right shoulder pain, rotator cuff tear, impingement syndrome, biceps tendinopathy. POSTOPERATIVE DIAGNOSES: Right shoulder rotator cuff tear, medium size, complex labral tear, long head of biceps tendon tear, glenohumeral joint chondromalacia, subacromial bursitis. PROCEDURES PERFORMED: Right shoulder arthroscopy, rotator cuff repair, arthroscopic biceps tenodesis, extensive debridement. SURGEON: Kenan Llanos MD THERMAL CUTTING MACHINE OPERATOR: Annie Sesay PA-C ANESTHESIA: General with preoperative ultrasound-guided block. FLUIDS: 1100 mL crystalloid. ESTIMATED BLOOD LOSS: None. DESCRIPTION OF PROCEDURE: After proper identification of the patient and operative site in the preoperative holding area, the operative site was signed by myself. Prophylactic antibiotics given. The patient elected to receive an ultrasound-guided block, which was performed by Dr. Villegas. In the preoperative holding area, the patient had minimal motor and sensory loss following his block. He was then brought back to the operative suite after induction of satisfactory general anesthesia, the right shoulder was examined. It was stable throughout a full arc of motion comparable to the preoperative assessment. He was then carefully positioned in the left lateral decubitus position with beanbag and axillary roll utilized to support the torso. The right shoulder was then sterilely prepped and draped in the usual manner and placed in 15 pounds of balanced arthroscopic suspension. Posterior portal was established, joint was inflated with an arthroscopic pump set at 40 mmHg. Anterior superior portal was then created using a spinal needle for localization. Examination of the glenohumeral joint revealed some intra-articular synovitis. There was fraying [facility] [address] [place] [address] OPERATIVE REPORT Name: JOSHUA MAYNARD Room #: 150-5 [facility] M.Mario.#: [id number] Admission: 03/13/20 Attend Phys: Kenan Damon Discharge: Date of : 64 Report #: [id number] and tearing of the superior labrum extending posteriorly to approximately the 9 o'clock position. The humeral head chondromalacia and mild glenoid chondromalacia was appreciated. This fibrillated tissue was carefully debrided with motorized shaver. There was evidence of a long head of the biceps tendon tear with an intrasubstance tear with the tear that extended into the intrasubstance. This area was carefully debrided. It did not appear to subluxate on the upper border of the subscapularis and the subscapularis was intact. Lever pull maneuver was utilized to visualize this. There was evidence of a full thickness minimally retracted tear of the more anterior supraspinatus as well. Tendon grasping stitch was placed on the biceps. It was released off the superior labrum. Remaining labrum was carefully debrided. A chondroplasty had been performed. The arthroscope was then introduced in the subacromial space where thickened subacromial bursa was encountered. It was resected for visualization purposes. Mild fraying on the undersurface of the coracoacromial arch was noted. No significant bony prominence was appreciated. This frayed portion of the CA ligament was carefully debrided. Frayed portion of the cuff was debrided. Greater tuberosity was prepared with a sharp ring curette and motorized shaver. This was an approximate 2 cm tear through a separate portal after lateral border of the acromion, a triple-loaded anchor with two #2 FiberWires and one FiberTape. This was a 4.75 mm SwiveLock anchor was inserted. It had good purchase. Sutures were passed in a horizontal mattress fashion and tied the labral tape. The FiberTape was then passed in a simple manner. These three suture pairs were then placed in a lateral row creating a double row construct after they had been tensioned appropriately. The repair construct was stable to probing, nicely reduced the tear in an anatomic position. Next, the lateral portion of the bicipital groove was opened. A whipstitch was placed on the tendon. It was secured into the ____ bicipital groove, which had been carefully debrided with motorized shaver and the Arthrex proximal biceps tenodesis button was delivered past the near cortex after the hole had been punched. This was then tensioned and tied nicely reducing the biceps within the bicipital groove, the more frayed portion had been removed and debrided and the sutures were tied. It was stable to probing. Subacromial space thoroughly irrigated with normal saline. Portals closed with simple nylon stitch. A 20 mL of 0.2% Naropin was injected into the subacromial space to aid in postoperative pain control due to the block likely not being fully effective. Qualified wet process miller head assistant utilized throughout the entire procedure to aid in patient limb positioning, visualization with arthroscope, instrument and suture passage as well as closure and sling application. By: Raysa: 03/13/20 1144 1210 Kenan Llanos MD /zaheer
[2020-03-13 10:07] LABS: INR 1.2
[2020-03-13 10:08] LABS: CALCIUM 8.4 mg/dL (8.5-10.1); CREATININE 1.1 mg/dL (0.7-1.3); POTASSIUM 3.9 mmol/L (3.5-5.1)
[2020-03-13 10:09] VITALS: BP 187/96
[2020-03-13 12:21] VITALS: BP 187/96
== END 2020-03-13 13:45 | disposition home or self-care (01) ==
LOC: OR 08:51 → TBA 08:52 → OR 10:28
PROVIDERS: ATTEND Orthopaedic Surgery Sports Medicine
DX: M25.511 Pain in right shoulder (principal); M75.101 Unspecified rotator cuff tear or rupture of right shoulder, not specified as traumatic; S43.491A Other sprain of right shoulder joint, initial encounter; S46.111A Strain of muscle, fascia and tendon of long head of biceps, right arm, initial encounter; M94.211 Chondromalacia, right shoulder; M75.51 Bursitis of right shoulder; I10 Essential (primary) hypertension; E78.5 Hyperlipidemia, unspecified; I48.91 Unspecified atrial fibrillation; I48.92 Unspecified atrial flutter; G47.30 Sleep apnea, unspecified; Z98.890 Other specified postprocedural states; Z79.899 Other long term (current) drug therapy; Z79.01 Long term (current) use of anticoagulants; Z95.2 Presence of prosthetic heart valve; X58.XXXA Exposure to other specified factors, initial encounter; Y93.89 Activity, other specified; Y92.89 Other specified places as the place of occurrence of the external cause; Y99.8 Other external cause status
CPT/HCPCS: 50010; 50101; 50172; 50386; 50417; 50935; 51320; 51847; 52001; 53610; 56527; 57103; 57418; 57419; 57420; 62110; 62900; 70005

== ENCOUNTER → 2021-03-26 | Outpatient (CLI) | payer BC | LOC: RAD 13:39 | PROVIDERS: ATTEND Internal Medicine Cardiovascular Disease | DX: I48.92 Unspecified atrial flutter (principal); R06.02 Shortness of breath ==

== ENCOUNTER → 2021-06-17 | Outpatient (CLI) | payer BC | LOC: SJCVCIMAG 08:34 | PROVIDERS: ATTEND Internal Medicine Cardiovascular Disease | DX: I44.7 Left bundle-branch block, unspecified (principal); R00.1 Bradycardia, unspecified; R94.31 Abnormal electrocardiogram [ECG] [EKG]; I25.10 Atherosclerotic heart disease of native coronary artery without angina pectoris; I42.8 Other cardiomyopathies; I48.91 Unspecified atrial fibrillation; R60.9 Edema, unspecified; Z95.2 Presence of prosthetic heart valve; R53.83 Other fatigue; Z79.01 Long term (current) use of anticoagulants; Z79.899 Other long term (current) drug therapy; Z72.89 Other problems related to lifestyle ==